=== PATIENT | female | born 1960 | race African-American/Black ===

== ENCOUNTER 2021-08-04 08:00 | Emergency (ER) | payer OTHER ==
[~2021-08-04] VITALS: Ht 162.6 cm; Wt 74.8 kg
[2021-08-04] MEDS ORDERED: MOBIC7.5 MG PO (08:44)
[2021-08-04 09:15] VITALS: BP 116/73
--- NOTE | 2021-08-04 09:17 | EKG ---
[address] [address] ELECTROCARDIOGRAM REPORT Name: DEANDRE NIELSEN [facility]: [id number] Admission: 08/04/21 Attend Phys: Discharge: Date of : 64 Report #: [id number] [facility] ED Test Date: 2021-08-04 Test Time: 09:09:11 Pat Name: DEANDRE NIELSEN Department: Room: Gender: F Student Finance Advisor: HATTIE : 1960 Requested By: Senthil Peña Order Number: [id number] MD: Jaden Guerrero Measurements Intervals [place] Rate: 66 P: 73 VA: 214 QRS: 75 QRSD: 98 T: 41 QT: 423 QTc: 444 Interpretive Statements Sinus rhythm Prolonged VA interval No previous ECG available for comparison Electronically Signed On 08-04-2021 9:16:47 CDT by Jaden Guerrero [email or web address] <ELECTRONICALLY SIGNED> By: Jaden Guerrero MD 08/04/21915 8 0909 Jaden Guerrero MD /EPI
== END 2021-08-04 09:20 | disposition home or self-care (01) ==
LOC: ER 08:00
DX: M54.5 Low back pain (principal); M25.511 Pain in right shoulder; M25.512 Pain in left shoulder; Z88.5 Allergy status to narcotic agent; W01.0XXA Fall on same level from slipping, tripping and stumbling without subsequent striking against object, initial encounter; Y93.89 Activity, other specified; Y92.89 Other specified places as the place of occurrence of the external cause; Y99.8 Other external cause status